=== PATIENT | male | born 1955 | race Caucasian/White ===

== ENCOUNTER 2018-06-11 06:37 | Observation (INO) ==
[2018-06-11] MEDS ORDERED: Aspirin 81 MG TAB.CHEW PO ONE (06:47)
[2018-06-11 07:10] LABS: Basophils # 0.1 K/mcL (0.0-0.2); Basophils % 0.7 %; Eosinophils # 0.2 K/mcL (0.0-0.6); Eosinophils % 2.8 %; Hematocrit 42.6 % (37.5-50.1); Hemoglobin 14.3 g/dL (12.9-16.9); Immature Granulocytes % 0.3 % (0-4); Lymphocytes # 2.1 K/mcL (0.6-4.6); Lymphocytes % 31.1 %; Mean Corpuscular HGB Conc 33.6 g/dL (31.6-35.5); Mean Corpuscular Hemoglobin 30.8 pg (28.0-33.3); Mean Corpuscular Volume 91.8 fL (83.0-100.0); Mean Platelet Volume 9.7 fL (9.4-12.4); Monocytes # 0.7 K/mcL (0.0-1.3); Monocytes % 10.6 %; Neutrophils # 3.6 K/mcL (1.6-8.9); Platelet Count 223 K/mcL (140-400); Red Blood Count 4.64 M/mcL (4.19-5.50); Red Cell Distribution Width 12.8 % (11.5-14.5); Segmented Neutrophils % 54.5 %
--- NOTE | 2018-06-11 07:14 | Emergency Department Note ---
Disposition Clinical Impression: Chest pain Qualifiers: Chest pain type: unspecified Qualified Code(s): R07.9 - Chest pain, unspecified Pancreatitis Qualifiers: Chronicity: acute Pancreatitis type: unspecified pancreatitis type Acute pancreatitis complication: unspecified Qualified Code(s): K85.90 - Acute pancreatitis without necrosis or infection, unspecified Disposition: Admitted As Inpatient Referrals: Cindy Beach RANGE MANAGEMENT SPECIALIST [Primary Care Provider] - Forms: ED Satisfaction Letter General Adult HPI - General Chief complaint: ED Chest Pain Stated complaint: CP/Nausea Time Seen by Provider: 06/11/18 06:47 Source: patient Limitations: no limitations Nursing Notes Reviewed: Yes Vital Signs Reviewed: Yes - History of Present Illness HPI Narrative: 63-year-old male past medical history of hypertension, hyperlipidemia, diabetes type 2 wheezes emergency department with concern for having symptoms of what he refers to as indigestion and nausea starting last night. Stated they woke up this morning, was at work, when he started experiencing chest pressure that was starting in the epigastrium radiated upward. Patient denies having any abdominal pain at this time. Pain Scale: 5 - Related Data Home Medications Medication Instructions Recorded Confirmed Celecoxib [Celebrex] 200 mg PO DAILY 06/11/18 06/11/18 Insulin DETEMIR [Levemir Flextouch] 50 unit SQ QPM 06/11/18 06/11/18 Latanoprost [Xalatan] 1 drop BOTH EYES HS 06/11/18 06/11/18 Liraglutide [Victoza 2-Frank] 1.8 mg SQ DAILY 06/11/18 06/11/18 Lisinopril [Zestril] 10 mg PO DAILY 06/11/18 06/11/18 Lovastatin [Mevacor] 20 mg PO HS 06/11/18 06/11/18 Magnesium Oxide [Magnesium] 400 mg PO DAILY 06/11/18 06/11/18 Metformin HCl 1,000 mg PO BID 06/11/18 06/11/18 Turmeric Root Extract [Turmeric 500 mg PO DAILY 06/11/18 06/11/18 Curcumin] Allergies Allergy/AdvReac Type Severity Reaction Status Date / Time No Known Allergies Allergy Verified 02/14/16 16:49 All systems ED: reviewed and negative except as stated. Review of Systems: As Per HPI Constitutional: Denies: fever Cardiovascular: Reports: chest pain Respiratory: Reports: dyspnea Gastrointestinal: Reports: abdominal pain, nausea. Denies: vomiting, diarrhea, constipation Genitourinary: Denies: urgency, dysuria, frequency Musculoskeletal: Denies: back pain, neck pain Neurological: Denies: weakness, numbness, paresthesias Past Medical History - Past Medical History Medical history: Reports: diabetes, hyperlipidemia, hypertension Psychiatric history: Reports: no psych history - Social History Smoking Status: Never smoker Smokeless Tobacco Status: No Alcohol use: Reports: none Drug use: Reports: none Physical Exam - General Limitations: no limitations General appearance: alert, in no apparent distress - Head Head exam: normocephalic - Eye Eye exam: Present: EOMI. Absent: scleral icterus - ENT ENT exam: mucous membranes moist - Neck Neck exam: Present: trachea midline - Chest Chest inspection: Present: symmetric chest wall rise - Respiratory Respiratory exam: Present: normal lung sounds bilaterally. Absent: respiratory distress, accessory muscle use - Cardiovascular Cardiovascular exam: Present: regular rate, normal rhythm, normal heart sounds - Abdominal Exam Abdominal exam: Present: tenderness (Diffuse), distention (Mild), guarding. Absent: rebound - Extremities Exam Extremities exam: Present: normal capillary refill - Back Exam Back exam: Present: full ROM - Neurological Exam Neurological exam: Present: alert, oriented X3, CN II-XII intact - Psychiatric Psychiatric exam: Present: normal affect, normal mood - Skin Skin exam: Present: warm, dry, intact, normal color. Absent: rash Course Vital Signs Temperature 97.5 F L 06/11/18 06:42 Pulse Rate 81 06/11/18 06:42 Respiratory Rate 18 06/11/18 06:42 Blood Pressure 134/108 06/11/18 06:42 O2 Sat by Pulse Oximetry 99 06/11/18 06:42 Temperature 97.5 F L 06/11/18 06:42 Pulse Rate 55 06/11/18 09:53 Respiratory Rate 14 06/11/18 09:53 Blood Pressure 119/74 06/11/18 09:53 O2 Sat by Pulse Oximetry 99 06/11/18 09:53 Oxygen Delivery Oxygen Delivery Room Air Medical Decision Making - MDM Narrative Medical decision making narrative: 63-year-old male presents emergency department with concern for chest pressure and epigastric abdominal pain with mild distention. Patient hemodynamically stable and not in any acute distress. EKG did not reveal any ischemic ST changes. Troponin is negative. Patient was given sublingual nitroglycerin brought his pain to a 2 out of 10. We were giving fluids as well as pressure was soft, but at time of initiating a nitro drip, he was chest pain-free. Patient had mildly elevated lipase at 113. We did obtain a CT scan of abdomen and pelvis which did not reveal any acute intra-abdominal abnormality. We did obtain a gallbladder ultrasound as well and this revealed mild gallbladder sludg e without evidence of cholelithiasis or cholecystitis per radiology. Chest and shoulder did not reveal any acute cardiopulmonary disease per radiology as well. Patient was offered admission due to concern for possible early pancreatitis as well as chest pain observation as he does have significant risk factors for coronary artery disease with his age, history of type 2 diabetes mellitus, hypertension, hyperlipidemia. He accepted it. Patient was chest pain-free at that time. Chest X-Ray 06/11/18 06:47 IMPRESSION: No acute cardiopulmonary process. The lungs are clear. D/ / Carlos Elliott MD / Carlos Elliott MD Interpreting Provider: Carlos Elliott MD Abdomen/Pelvis CT 06/11/18 07:15 IMPRESSION: Colonic diverticulosis is identified, without acute diverticulitis. The appendix appears normal. No right-sided renal calculi, ureteral calculi, hydronephrosis or evidence of recently passed stone. Hepatic steatosis. No acute inflammatory process is identified within the abdomen or pelvis. No bowel obstruction or ileus. Minimal subcutaneous soft tissue stranding may be related to mild subcutaneous edema in the anterior abdominal wall above the umbilicus. No discrete fluid collection. D/ / Carlos Elliott MD / Carlos Elliott MD Interpreting Provider: Carlos Elliott MD Gallbladder Ultrasound 06/11/18 07:50 IMPRESSION: 1. Mild gallbladder sludge without evidence of cholelithiasis or cholecystitis. 2. Diffuse hepatic steatosis. 3. Nonvisualization of the pancreas secondary to obscuration by overlying bowel gas. 4. Unremarkable sonographic appearance of the common bile duct and right kidney. D/ / 06/11/2018 09:37:54 Abran Juan MD / shyanne Interpreting Provider: Abran Juan MD Vital Signs Temperature 97.5 F L 06/11/18 06:42 Pulse Rate 81 06/11/18 06:42 Respiratory Rate 18 06/11/18 06:42 Blood Pressure 134/108 06/11/18 06:42 O2 Sat by Pulse Oximetry 99 06/11/18 06:42 Temperature 97.5 F L 06/11/18 06:42 Pulse Rate 55 06/11/18 09:53 Respiratory Rate 14 06/11/18 09:53 Blood Pressure 119/74 06/11/18 09:53 O2 Sat by Pulse Oximetry 99 06/11/18 09:53 Oxygen Delivery Oxygen Delivery Room Air - Lab Data Result diagrams: 06/11/18 06:51 06/11/18 06:51 Lab Results 06/11/18 06/11/18 06/11/18 Range/Units 06:51 06:51 06:51 WBC 6.7 (4.3-11.1) K/mcL RBC 4.64 (4.19-5.50) M/mcL Hgb 14.3 (12.9-16.9) g/dL Hct 42.6 (37.5-50.1) % MCV 91.8 (83.0-100.0) fL MCH 30.8 (28.0-33.3) pg MCHC 33.6 (31.6-35.5) g/dL RDW 12.8 (11.5-14.5) % Plt Count 223 (140-400) K/mcL MPV 9.7 (9.4-12.4) fL Immature Gran % 0.3 (0-4) % Seg Neutrophils % 54.5 % Lymphocytes % 31.1 % Monocytes % 10.6 % Eosinophils % 2.8 % Basophils % 0.7 % Neutrophils # 3.6 (1.6-8.9) K/mcL Lymphocytes # 2.1 (0.6-4.6) K/mcL Monocytes # 0.7 (0.0-1.3) K/mcL Eosinophils # 0.2 (0.0-0.6) K/mcL Basophils # 0.1 (0.0-0.2) K/mcL PT (9.4-12.1) Seconds INR APTT (26.0-36.0) Seconds Sodium 134 L (136-145) mEq/L Potassium 4.3 (3.5-5.1) mEq/L Chloride 103 (98-107) mEq/L Carbon Dioxide 23 (23-29) mEq/L BUN 16 (8-23) mg/dL Creatinine 1.10 (0.70-1.30) mg/dL Est GFR ( Amer) > 60 (> 60) Est GFR (Non-Af Amer) > 60 (> 60) BUN/Creatinine Ratio 15 (6-26) Glucose 214 H (70-105) mg/dL Calculated Osmolality 286 (280-300) Calcium 9.3 (8.6-10.3) mg/dL Total Bilirubin (0.3-1.0) mg/dL Direct Bilirubin (0.0-0.2) mg/dL Indirect Bilirubin (0.0-1.2) mg/dL AST (13-39) Units/L ALT (7-52) Units/L Alkaline Phosphatase (34-104) Units/L Troponin I < 0.03 (< 0.04) ng/mL B-Natriuretic Peptide 21 (Less than 100) pg/mL Serum Total Protein (6.4-8.9) g/dL Albumin (3.5-5.7) g/dL Globulin (2.4-3.5) g/dL Albumin/Globulin Ratio (1.1-2.2) Lipase (11-82) Units/L 06/11/18 06/11/18 Range/Units 07:20 07:20 WBC (4.3-11.1) K/mcL RBC (4.19-5.50) M/mcL Hgb (12.9-16.9) g/dL Hct (37.5-50.1) % MCV (83.0-100.0) fL MCH (28.0-33.3) pg MCHC (31.6-35.5) g/dL RDW (11.5-14.5) % Plt Count (140-400) K/mcL MPV (9.4-12.4) fL Immature Gran % (0-4) % Seg Neutrophils % % Lymphocytes % % Monocytes % % Eosinophils % % Basophils % % Neutrophils # (1.6-8.9) K/mcL Lymphocytes # (0.6-4.6) K/mcL Monocytes # (0.0-1.3) K/mcL Eosinophils # (0.0-0.6) K/mcL Basophils # (0.0-0.2) K/mcL PT 12.4 H (9.4-12.1) Seconds INR 1.1 APTT 30.2 (26.0-36.0) Seconds Sodium (136-145) mEq/L Potassium (3.5-5.1) mEq/L Chloride (98-107) mEq/L Carbon Dioxide (23-29) mEq/L BUN (8-23) mg/dL Creatinine (0.70-1.30) mg/dL Est GFR ( Amer) (> 60) Est GFR (Non-Af Amer) (> 60) BUN/Creatinine Ratio (6-26) Glucose (70-105) mg/dL Calculated Osmolality (280-300) Calcium (8.6-10.3) mg/dL Total Bilirubin 0.6 (0.3-1.0) mg/dL Direct Bilirubin 0.1 (0.0-0.2) mg/dL Indirect Bilirubin 0.5 (0.0-1.2) mg/dL AST 18 (13-39) Units/L ALT 16 (7-52) Units/L Alkaline Phosphatase 38 (34-104) Units/L Troponin I (< 0.04) ng/mL B-Natriuretic Peptide (Less than 100) pg/mL Serum Total Protein 6.6 (6.4-8.9) g/dL Albumin 4.0 (3.5-5.7) g/dL Globulin 2.6 (2.4-3.5) g/dL Albumin/Globulin Ratio 1.5 (1.1-2.2) Lipase 113 H (11-82) Units/L - EKG Data EKG #1 EKG attestation: Yes I reviewed and interpreted this EKG. EKG results narrative: EKG #1 Heart rate 72 bpm, [place] interval 166 ms, QRS anabaptist 118 ms, QT 384 ms, left asked deviation. Normal sinus rhythm with no ischemic ST changes. There is a left anterior fascicular block that is seen on previous EKG. EKG #2 8:51 No changes on this EKG compared to previous. Attestation Statement - Attestation Attestation: I, George Wilcox DO, examined this patient [id number] and my medical decision-making was reviewed with Dr. Maximo Franco, Resident Physician. I agree with the documented findings, disposition and treatment plan as described except to the extent set forth below. Please see my progress notes for details.
[2018-06-11] MEDS ORDERED: Isovue-370 500 ML INFUS..BTL IV ONE (07:15)
[2018-06-11] MEDS ORDERED: Nitroglycerin 0.4 MG TAB.SUBL SL PRN (07:16)
[2018-06-11] MEDS ORDERED: 0.9 % Sodium Chloride 1,000 ML IVC ONE (07:16)
[2018-06-11 07:29] LABS: BUN/Creatinine Ratio 15 (6-26); Blood Urea Nitrogen 16 mg/dL (8-23); Calcium 9.3 mg/dL (8.6-10.3); Carbon Dioxide 23 mEq/L (23-29); Chloride 103 mEq/L (98-107); Glucose 214 mg/dL (70-105); Osmolality,Calculated 286 (280-300); Potassium 4.3 mEq/L (3.5-5.1); Sodium 134 mEq/L (136-145); Troponin I < 0.03 ng/mL (< 0.04); eGFR For Non-African Americans > 60 (> 60)
[2018-06-11 07:43] LABS: INR 1.1; Prothrombin Time 12.4 Seconds (9.4-12.1)
[2018-06-11 07:46] LABS: Activated Partial Thrombo Time 30.2 Seconds (26.0-36.0); Albumin/Globulin Ratio 1.5 (1.1-2.2); Bilirubin,Direct 0.1 mg/dL (0.0-0.2); Bilirubin,Indirect 0.5 mg/dL (0.0-1.2); Bilirubin,Total 0.6 mg/dL (0.3-1.0); Globulin 2.6 g/dL (2.4-3.5); Total Protein 6.6 g/dL (6.4-8.9)
--- NOTE | 2018-06-11 07:58 | Emergency Department Note ---
Disposition Clinical Impression: Chest pain, Elevated lipase, Epigastric pain Disposition: Admitted As Inpatient Condition: Fair Referrals: Cindy Beach, MARBLE MACHINE OPERATOR [Primary Care Provider] - Forms: ED Satisfaction Letter Time of Disposition: 10:02 General Adult HPI - General Chief complaint: ED Chest Pain Stated complaint: CP/Nausea Time Seen by Provider: 06/11/18 06:47 Source: patient Limitations: no limitations - History of Present Illness Pain Scale: 5 - Related Data Home Medications Medication Instructions Recorded Confirmed Celecoxib [Celebrex] 200 mg PO DAILY 06/11/18 06/11/18 Insulin DETEMIR [Levemir Flextouch] 50 unit SQ QPM 06/11/18 06/11/18 Latanoprost [Xalatan] 1 drop BOTH EYES HS 06/11/18 06/11/18 Liraglutide [Victoza 2-Frank] 1.8 mg SQ DAILY 06/11/18 06/11/18 Lisinopril [Zestril] 10 mg PO DAILY 06/11/18 06/11/18 Lovastatin [Mevacor] 20 mg PO HS 06/11/18 06/11/18 Magnesium Oxide [Magnesium] 400 mg PO DAILY 06/11/18 06/11/18 Metformin HCl 1,000 mg PO BID 06/11/18 06/11/18 Turmeric Root Extract [Turmeric 500 mg PO DAILY 06/11/18 06/11/18 Curcumin] Allergies Allergy/AdvReac Type Severity Reaction Status Date / Time No Known Allergies Allergy Verified 02/14/16 16:49 Past Medical History - Past Medical History Medical history: Reports: diabetes, hyperlipidemia, hypertension Psychiatric history: Reports: no psych history - Social History Smoking Status: Never smoker Smokeless Tobacco Status: No Alcohol use: Reports: none Drug use: Reports: none Physical Exam - General Limitations: no limitations General appearance: alert, in no apparent distress Course Vital Signs Temperature 97.5 F L 06/11/18 06:42 Pulse Rate 81 06/11/18 06:42 Respiratory Rate 18 06/11/18 06:42 Blood Pressure 134/108 06/11/18 06:42 O2 Sat by Pulse Oximetry 99 06/11/18 06:42 Temperature 97.5 F L 06/11/18 06:42 Pulse Rate 55 06/11/18 09:53 Respiratory Rate 14 11/28/18 09:53 Blood Pressure 119/74 06/11/18 09:53 O2 Sat by Pulse Oximetry 99 06/11/18 09:53 Oxygen Delivery Oxygen Delivery Room Air Medical Decision Making - Lab Data Result diagrams: 06/11/18 06:51 06/11/18 06:51 Lab Results 06/11/18 06/11/18 06/11/18 Range/Units 06:51 06:51 06:51 WBC 6.7 (4.3-11.1) K/mcL RBC 4.64 (4.19-5.50) M/mcL Hgb 14.3 (12.9-16.9) g/dL Hct 42.6 (37.5-50.1) % MCV 91.8 (83.0-100.0) fL MCH 30.8 (28.0-33.3) pg MCHC 33.6 (31.6-35.5) g/dL RDW 12.8 (11.5-14.5) % Plt Count 223 (140-400) K/mcL MPV 9.7 (9.4-12.4) fL Immature Gran % 0.3 (0-4) % Seg Neutrophils % 54.5 % Lymphocytes % 31.1 % Monocytes % 10.6 % Eosinophils % 2.8 % Basophils % 0.7 % Neutrophils # 3.6 (1.6-8.9) K/mcL Lymphocytes # 2.1 (0.6-4.6) K/mcL Monocytes # 0.7 (0.0-1.3) K/mcL Eosinophils # 0.2 (0.0-0.6) K/mcL Basophils # 0.1 (0.0-0.2) K/mcL PT (9.4-12.1) Seconds INR APTT (26.0-36.0) Seconds Sodium 134 L (136-145) mEq/L Potassium 4.3 (3.5-5.1) mEq/L Chloride 103 (98-107) mEq/L Carbon Dioxide 23 (23-29) mEq/L BUN 16 (8-23) mg/dL Creatinine 1.10 (0.70-1.30) mg/dL Est GFR ( Amer) > 60 (> 60) Est GFR (Non-Af Amer) > 60 (> 60) BUN/Creatinine Ratio 15 (6-26) Glucose 214 H (70-105) mg/dL Calculated Osmolality 286 (280-300) Calcium 9.3 (8.6-10.3) mg/dL Total Bilirubin (0.3-1.0) mg/dL Direct Bilirubin (0.0-0.2) mg/dL Indirect Bilirubin (0.0-1.2) mg/dL AST (13-39) Units/L ALT (7-52) Units/L Alkaline Phosphatase (34-104) Units/L Troponin I < 0.03 (< 0.04) ng/mL B-Natriuretic Peptide 21 (Less than 100) pg/mL Serum Total Protein (6.4-8.9) g/dL Albumin (3.5-5.7) g/dL Globulin (2.4-3.5) g/dL Albumin/Globulin Ratio (1.1-2.2) Lipase (11-82) Units/L 06/11/18 06/11/18 Range/Units 07:20 07:20 WBC (4.3-11.1) K/mcL RBC (4.19-5.50) M/mcL Hgb (12.9-16.9) g/dL Hct (37.5-50.1) % MCV (83.0-100.0) fL MCH (28.0-33.3) pg MCHC (31.6-35.5) g/dL RDW (11.5-14.5) % Plt Count (140-400) K/mcL MPV (9.4-12.4) fL Immature Gran % (0-4) % Seg Neutrophils % % Lymphocytes % % Monocytes % % Eosinophils % % Basophils % % Neutrophils # (1.6-8.9) K/mcL Lymphocytes # (0.6-4.6) K/mcL Monocytes # (0.0-1.3) K/mcL Eosinophils # (0.0-0.6) K/mcL Basophils # (0.0-0.2) K/mcL PT 12.4 H (9.4-12.1) Seconds INR 1.1 APTT 30.2 (26.0-36.0) Seconds Sodium (136-145) mEq/L Potassium (3.5-5.1) mEq/L Chloride (98-107) mEq/L Carbon Dioxide (23-29) mEq/L BUN (8-23) mg/dL Creatinine (0.70-1.30) mg/dL Est GFR ( Amer) (> 60) Est GFR (Non-Af Amer) (> 60) BUN/Creatinine Ratio (6-26) Glucose (70-105) mg/dL Calculated Osmolality (280-300) Calcium (8.6-10.3) mg/dL Total Bilirubin 0.6 (0.3-1.0) mg/dL Direct Bilirubin 0.1 (0.0-0.2) mg/dL Indirect Bilirubin 0.5 (0.0-1.2) mg/dL AST 18 (13-39) Units/L ALT 16 (7-52) Units/L Alkaline Phosphatase 38 (34-104) Units/L Troponin I (< 0.04) ng/mL B-Natriuretic Peptide (Less than 100) pg/mL Serum Total Protein 6.6 (6.4-8.9) g/dL Albumin 4.0 (3.5-5.7) g/dL Globulin 2.6 (2.4-3.5) g/dL Albumin/Globulin Ratio 1.5 (1.1-2.2) Lipase 113 H (11-82) Units/L Attestation Statement - Attestation Attestation: I, George Wilcox DO, examined this patient [id number] and my medical decision-making was reviewed with Dr. Maximo Franco, Resident Physician. I agree with the documented findings, disposition and treatment plan as described except to the extent set forth below. Please see my progress notes for details. 62-year-old male presents to the emergency room with worsening chest pressure and epigastric pain. Patient has no specific cardiac history at this time. Currently denying shortness of breath, nausea, vomiting, diarrhea. Denies any headache or vision change. Denies any fevers or chills. He has not been re cently ill. Denies any sick contacts. He has not traveled outside the country and has not eaten any abnormal places. Patient said the symptoms started yesterday prior to going to bed. He woke up acutely this morning with pressure and tightness in his epigastrium. He did go to work and did not have any relief of the symptoms subside to come into the emergency room for evaluation. Aspirin was taken this morning and the completion of the full dose aspirin was given here. Initial EKG does not show any diagnostic criteria for acute myocardial infarction. Symptomatically controlled will be completed with fluids nausea medication and nitroglycerin. Vital signs are reviewed and are stable at this point. Screening evaluation with CBC chemistry troponin and BNP along with chest x-ray will be established here in the emergency room. Patient does have risk factors including hypertension, hyperlipidemia, elevated cholesterol. Patient's primary care providers Cindy Beach. Concern is noted for acute coronary syndrome at this time. Versus abdominal etiology. Detailed workup to be completed. Fluids pain medication nausea medication will be ordered. Disposition to be determined. See detailed documentation of the physical exam, medical intervention, medical decision-making and disposition in the resident physician's note. No critical care applied to the patient's treatment course at this time. 0800 Troponin is negative. Patient does have a slightly elevated lipase. He does no t have any specific history of alcohol abuse her pancreatitis. CT imaging of the abdomen as well as a right upper quadrant ultrasound will be utilized at this point to address any other potential obstructive pathology versus inflammatory changes in the abdominal area. Symptomatic control has been completed with nitroglycerin. Symptoms did almost completely resolved with one single dose his blood pressure did drop. Fluids were given and then repeat evaluation to be completed. Patient will require admission once workup has been completed 0915 Patient's repeat EKG is essentially normal. No changes. Pain is completely gone with the nitroglycerin drip. Patient will be provided with any other symptomatic control as needed during the emergency department evaluation. The CT imaging of the abdomen is unremarkable for acute signs of pancreatitis inflammation or other intra-abdominal etiology. Ultrasound shows biliary sludge but otherwise no acute signs of cholecystitis. Patient will be admitted with main concern being potential early pancreatitis versus ACS evaluation. Hospitalist will be paged [phone] Dr. Lee reviewed the case via phone. No other recommendations or concerns at this point. Patient is chest pain-free. He will be admitted for symptomatic control continuation of management. We will monitor here in the emergency room until admission processes established
[2018-06-11] MEDS: Nitroglycerin 25 MG/250 ML INFUS..BTL IVC SCH (10:17)
--- NOTE | 2018-06-11 10:18 | Internal Med History&Physical ---
Date of Encounter: 06/11/18 Time of Encounter: 10:14 Internal Medicine - H&P: HPI Chief complaint: chest pain and nausea Admitted From: Emergency Dept Plans for Post Hospital Care: Home History of present illness: Mr. Anne is a 63 year old male Patient with history of hypertension, high cholesterol, diabetes, obesity, family history of CAD father had history of CABG. Patient presented to the emergency room with chest pain started this morning mid sternal no radiation has some nausea but no vomiting also has some epigastric pain and came into the emergency room the chest pain has subsided but not resolved EKG is unremarkable further evaluation CT of the abdomen and pelvis is unremarkable US of r Gallbladder Shows Some Gallbladder Sludge Troponin so Far Is Negative Lipase Is 113 Upper Limit of Normal Is 82 Patient Denies Any Alcohol Problem Patient Admitted for Chest Pain Rule Out Protocol Will Try to Get Him in for Nuclear Stress Test if Possible this morning and Also 2-D Echo. Past Med Surg Social Fam HX - Past Medical History Medical history: diabetes, hyperlipidemia, hypertension Psychiatric history: no psych history - Past Surgical History Additional surgical history: back - Social History Smoking Status: Never smoker Smokeless Tobacco Status: No Alcohol use: none Drug use: none Internal Medicine - H&P: Meds Celecoxib [Celebrex] 200 mg PO DAILY 06/11/18 [History] Insulin DETEMIR [Levemir Flextouch] 50 unit SQ QPM 06/11/18 [History] Latanoprost [Xalatan] 1 drop BOTH EYES HS 06/11/18 [History] Liraglutide [Victoza 2-Frank] 1.8 mg SQ DAILY 06/11/18 [History] Lisinopril [Zestril] 10 mg PO DAILY 06/11/18 [History] Lovastatin [Mevacor] 20 mg PO HS 06/11/18 [History] Magnesium Oxide [Magnesium] 400 mg PO DAILY 06/11/18 [History] Metformin HCl 1,000 mg PO BID 06/11/18 [History] Turmeric Root Extract [Turmeric Curcumin] 500 mg PO DAILY 06/11/18 [History] Allergy/AdvReac Type Severity Reaction Status Date / Time No Known Allergies Allergy Verified 02/14/16 16:49 All Systems PM: A 10-system review of systems was performed and is negative for pertinent findings except as documented above in the HPI. - Constitutional Vitals: Temp Pulse Resp BP Pulse Ox 97.5 F L 55 14 119/74 99 06/11/18 06:42 06/11/18 09:53 06/11/18 09:53 06/11/18 09:53 06/11/18 09:53 Exam: done - Head Head exam: Present: atraumatic, normocephalic - Eye Eye exam: Present: PERRL, conjuntiva pink, sclera anicteric Pupils: Present: PERRL - Neck Neck exam general surgery: Present: supple, trachea midline. Absent: lym phadenopathy - Respiratory Respiratory exam: Present: CTAB. Absent: accessory muscle use, rales, rhonchi, wheezes - Cardiovascular Cardiovascular exam: Present: RRR, +S1, +S2. Absent: diastolic murmur, gallop, rubs, systolic murmur - GI/Abdominal GI/Abdominal exam: Present: normal bowel sounds, soft, no peritoneal signs. Absent: distended, tenderness - Extremities Exam Extremities exam: Present: warm, radial pulses palpable and symmetrical. Absent: calf tenderness, cyanotic, pedal edema - Neurological Exam Neurological exam: Present: CN II-XII intact, oriented X3, no focal deficits. Absent: pronater drift, facial droop, speech deficit - Skin Skin exam: Present: dry, intact Internal Med - H&P Results - Labs CBC & Chem 7: 06/11/18 06:51 06/11/18 06:51 Labs: Short CBC 06/11/18 Range/Units 06:51 WBC 6.7 (4.3-11.1) K/mcL Hgb 14.3 (12.9-16.9) g/dL Hct 42.6 (37.5-50.1) % Plt Count 223 (140-400) K/mcL Neutrophils # 3.6 (1.6-8.9) K/mcL BMP 06/11/18 06:51 Sodium 134 L Potassium 4.3 Chloride 103 Carbon Dioxide 23 BUN 16 Creatinine 1.10 Glucose 214 H Calcium 9.3 Cardiac Enzymes 06/11/18 Range/Units 06:51 Troponin I < 0.03 (< 0.04) ng/mL Liver Function 06/11/18 Range/Units 07:20 Total Bilirubin 0.6 (0.3-1.0) mg/dL Direct Bilirubin 0.1 (0.0-0.2) mg/dL AST 18 (13-39) Units/L ALT 16 (7-52) Units/L Alkaline Phosphatase 38 (34-104) Units/L Albumin 4.0 (3.5-5.7) g/dL - Impressions ITS Impressions Chest X-Ray 06/11/18 06:47 IMPRESSION: No acute cardiopulmonary process. The lungs are clear. D/ / Carlos Elliott MD / Carlos Elliott MD Interpreting Provider: Carlos Elliott MD Abdomen/Pelvis CT 06/11/18 07:15 IMPRESSION: Colonic diverticulosis is identified, without acute diverticulitis. The appendix appears normal. No right-sided renal calculi, ureteral calculi, hydronephrosis or evidence of recently passed stone. Hepatic steatosis. No acute inflammatory process is identified within the abdomen or pelvis. No bowel obstruction or ileus. Minimal subcutaneous soft tissue stranding may be related to mild subcutaneous edema in the anterior abdominal wall above the umbilicus. No discrete fluid collection. D/ / Carlos Elliott MD / Carlos Elliott MD Interpreting Provider: Carlos Elliott MD Gallbladder Ultrasound 06/11/18 07:50 IMPRESSION: 1. Mild gallbladder sludge without evidence of cholelithiasis or cholecystitis. 2. Diffuse hepatic steatosis. 3. Nonvisualization of the pancreas secondary to obscuration by overlying bowel gas. 4. Unremarkable sonographic appearance of the common bile duct and right kidney. D/ / 06/11/2018 09:37:54 Abran Juan MD / [facility] Interpreting Provider: Abran Juan MD - Assessment and plan (1) HTN (hypertension) Current Visit: Yes Status: Chronic Assessment and plan: Chronic and well controlled Qualifiers: Hypertension type: essential hypertension Qualified Code(s): I10 - Essential (primary) hypertension (2) Diabetes 1.5, managed as type 2 Current Visit: Yes Status: Chronic Assessment and plan: Chronic with resume home medication and place on sliding scale (3) Obesity Current Visit: Yes Status: Chronic Assessment and plan: Chronic due to excess caloric intake Qualifiers: Obesity type: due to excess calories Obesity classification: unspecified obesity classification Serious obesity comorbidity presence: unspecified whether serious comorbidity present Qualified Code(s): E66.09 - Other obesity due to excess calories (4) Hyperlipidemia Current Visit: Yes Status: Chronic Assessment and plan: Will check lipid profile Qualifiers: Hyperlipidemia type: pure hypercholesterolemia Qualified Code(s): E78.00 - Pure hypercholesterolemia, unspecified; E78.0 - Pure hypercholesterolemia (5) Chest pain Current Visit: Yes Status: Acute Assessment and plan: Chest pain the patient with multiple cardiac risk factors hypertension diabetes high cholesterol and obesity and family history of CAD need further cardiac evaluation was scheduled for stress test and that 2-D echo Qualifiers: Chest pain type: unspecified Qualified Code(s): R07.9 - Chest pain, unspecified (6) Epigastric pain Current Visit: Yes Status: Acute Assessment and plan: Likely secondary to mild pancreatitis gallbladder ultrasound shows some sludge but no acute cholecystitis liver function is normal CT of the abdomen is unremarkable (7) Pancreatitis Current Visit: Yes Status: Acute Qualifiers: Chronicity: acute Pancreatitis type: unspecified pancreatitis type Acute pancreatitis complication: unspecified Qualified Code(s): K85.90 - Acute pancreatitis without necrosis or infection, unspecified - Time Spent With Patient Total time spent is greater than 50% in coordination of care (as documented) at patient's floor/unit and/or counseling patient:
[2018-06-11] MEDS ORDERED: Acetaminophen 325 MG TABLET PO PRN (10:22)
[2018-06-11] MEDS ORDERED: Naloxone 0.4 MG/ML INJ IVP PRN (10:22)
[2018-06-11] MEDS ORDERED: traMADol 50 MG TABLET PO PRN (10:22)
[2018-06-11] MEDS ORDERED: *HR* Dextrose 50 % in Water (Syg) 50 ML SYRINGE IVP PRN (10:33)
[2018-06-11] MEDS ORDERED: D5% in Water 1,000 ML IVC PRN (10:33)
[2018-06-11] MEDS ORDERED: Dextrose Gel 15 GM/37.5 ML TUBE PO PRN ×2 (10:33)
[2018-06-11] MEDS: Insulin LISPRO 300 UNITS/3 ML VIAL SQ SCH ×2 (12:00→17:51)
[2018-06-11 12:13] LABS: Alanine Aminotransferase 16 Units/L (7-52); Albumin 3.9 g/dL (3.5-5.7); Albumin/Globulin Ratio 1.6 (1.1-2.2); Alkaline Phosphatase 38 Units/L (34-104); Aspartate Amino Transferase 17 Units/L (13-39); BUN/Creatinine Ratio 15 (6-26); Bilirubin,Total 0.6 mg/dL (0.3-1.0); Blood Urea Nitrogen 14 mg/dL (8-23); Calcium 8.5 mg/dL (8.6-10.3); Carbon Dioxide 24 mEq/L (23-29); Chloride 107 mEq/L (98-107); Chol/HDL Ratio 3.5 (0-4.9); Cholesterol 110 mg/dL (< 200); Globulin 2.4 g/dL (2.4-3.5); Glucose 133 mg/dL (70-105); HDL Cholesterol 31 mg/dL (40-59); LDL Cholesterol,Calculated 56 mg/dL (0-99); Osmolality,Calculated 290 (280-300); Potassium 4.4 mEq/L (3.5-5.1); Sodium 139 mEq/L (136-145); Total Protein 6.3 g/dL (6.4-8.9); Triglycerides 117 mg/dL (< 150); eGFR For Non-African Americans > 60 (> 60)
[2018-06-11] MEDS: 0.9 % Sodium Chloride 1,000 ML IVC SCH (17:43)
[2018-06-11] MEDS ORDERED: Insulin DETEMIR 100 UNIT/ML X5UNITS SQ SCH (21:00)
[2018-06-11] MEDS ORDERED: Latanoprost 2.5 ML BOTTLE BOTH EYES SCH (21:00)
[2018-06-12 05:38] LABS: Basophils # 0.1 K/mcL (0.0-0.2); Basophils % 0.7 %; Eosinophils # 0.2 K/mcL (0.0-0.6); Eosinophils % 3.2 %; Hematocrit 39.5 % (37.5-50.1); Immature Granulocytes % 0.1 % (0-4); Lymphocytes # 2.4 K/mcL (0.6-4.6); Lymphocytes % 31.9 %; Mean Corpuscular HGB Conc 32.9 g/dL (31.6-35.5); Mean Corpuscular Hemoglobin 30.8 pg (28.0-33.3); Mean Corpuscular Volume 93.6 fL (83.0-100.0); Mean Platelet Volume 9.7 fL (9.4-12.4); Monocytes # 0.7 K/mcL (0.0-1.3); Monocytes % 9.7 %; Neutrophils # 4.1 K/mcL (1.6-8.9); Platelet Count 187 K/mcL (140-400); Red Blood Count 4.22 M/mcL (4.19-5.50); Red Cell Distribution Width 12.7 % (11.5-14.5); Segmented Neutrophils % 54.4 %
[2018-06-12] MEDS ORDERED: Regadenoson 0.4 MG/5 ML SYRINGE IVP ONE (05:47)
[2018-06-12] MEDS: 0.9 % Sodium Chloride 1,000 ML IVC SCH (06:07)
--- NOTE | 2018-06-12 07:27 | Electrocardiograph Report ---
[place] [facility] Test Date: 2018-06-11 Pat Name: Gray Anne Department: EXAM21 Room: 3B53 Gender: M Bin Packer: : 1955 Requested By: Pritesh Fisher Order Number: [id number] Reading MD: Freddy Jean Measurements Intervals [place] Rate: 72 P: 71 OR: 166 QRS: -78 QRSD: 118 T: 39 QT: 384 QTc: 421 Interpretive Statements Sinus rhythm Left anterior fascicular block Electronically Signed On 06-12-2018 7:26:41 EST by Freddy Jean
--- NOTE | 2018-06-12 07:32 | Electrocardiograph Report ---
[place] [facility] Test Date: 2018-06-11 Pat Name: Gray Anne Department: EXAM21 Room: 3B53 Gender: M Merchandising Consultant: : 1955 Requested By: Maximo Franco Order Number: [id number] Reading MD: Freddy Jean Measurements Intervals [place] Rate: 60 P: 56 VA: 196 QRS: -74 QRSD: 118 T: 4 QT: 416 QTc: 416 Interpretive Statements Sinus rhythm Left anterior fascicular block Electronically Signed On 06-12-2018 7:30:21 EST by Freddy Jean
[2018-06-12] MEDS ORDERED: Liraglutide [Victoza 2-Pak] 1.8 MG SQ SCH (09:00)
[2018-06-12] MEDS ORDERED: Magnesium Oxide 400 MG TABLET PO SCH (09:00)
[2018-06-12] MEDS ORDERED: Celecoxib 200 MG CAPSULE PO SCH (09:00)
[2018-06-12] MEDS ORDERED: TURMERIC ROOT EXTRACT 500 MG PO SCH (09:00)
[2018-06-12] MEDS: Insulin LISPRO 300 UNITS/3 ML VIAL SQ SCH ×2 (09:04→12:22)
[2018-06-12] MEDS: Nitroglycerin 25 MG/250 ML INFUS..BTL IVC SCH (11:02)
[2018-06-12 11:49] VITALS: BP 122/74
--- NOTE | 2018-06-12 13:49 | Cardiology Consult Note ---
Addendum entered and electronically signed by Bismark Moraes MD 06/12/18 14:26: I examined this patient and my medical decision-making was reviewed with the Resident Physician. I agree with the documented findings, disposition and treatment plan as described except to the extent set forth below. A/P: Equivocal stress test with possible low risk abnormality DM Dyslipidemia Obesity A/R/B of LHC versus med tx discussed with him. Given low risk stress findings, patient decision is acceptable for trial of medical management for 2 weeks. FU visit in 2 weeks and start BB, if continued anginal symptoms can fu with [facility] with me. Thank you for the consult, Bismark Moraes MD [facility] Original Note: Date of Encounter: 06/12/18 Time of Encounter: 13:41 Assessment and Plan (1) Chest pain Current Visit: Yes Status: Acute atypical chest pain ECG sinus rhythm with rate [address] elevation or depression Troponin negative x3 Echocardiogram: LVEF 60%.Normal LV chamber size, wall thickness and function.Mild left ventricular diastolic dysfunction.Mild systolic anterior motion of the MV leaflets. No obstruction.Normal right ventricular structure and function.Unable to estimate RVSP due to lack of TR jet. No significant valvular dysfunction. Stress test shows tress test shows small sized, mild to moderate intensity partially fixed perfusion defect involving the apical inferior segment. plan: Patient not in ACS. Plan on patient following up with cardiology outpatien t in one week for consideration of outpatient [facility]. Patients LDL and total cholesterol is at goal. Continue home aspirin, statin, lisinopril. Start on low dose bblocker. Patient should also be discharged with nitroglycerin. Qualifiers: Chest pain type: unspecified Qualified Code(s): R07.9 - Chest pain, unspecified (2) Diabetes 1.5, managed as type 2 Current Visit: Yes Status: Chronic insulin dependent DM2 controlled (3) Obesity Current Visit: Yes Status: Chronic patient educated on benefits of weight reduction Qualifiers: Obesity type: due to excess calories Obesity classification: unspecified obesity classification Serious obesity comorbidity presence: unspecified whether serious comorbidity present Qualified Code(s): E66.09 - Other obesity due to excess calories (4) Hyperlipidemia Current Visit: Yes Status: Chronic continue home statin Qualifiers: Hyperlipidemia type: pure hypercholesterolemia Qualified Code(s): E78.00 - Pure hypercholesterolemia, unspecified; E78.0 - Pure hypercholesterolemia Discussion w patient/family: The assessment and plan as outlined above was discussed with the patient and/or family members who expressed understanding and agreement. All questions were answered. Thank you for involving us in the care of your patient. Please call with any questions. History of Present Illness Consult date: 06/12/18 Requesting physician: Brien Lee Consult reason: abnormal stress test Chief complaint: chest pain History of present illness: Mr. Anne is a 63 year old male hx of insulin dependent DM2, HTN, HLD presents with cc of chest pain. reports her and patient had arguement overnight and usually patient becomes very stressed after arguments. In the morning, patient was very nauseas and gagging. On the way to work patients nausea continued and he had sub-sternal chest pain without radiation. He denied exacerbating symptoms and relieving symptoms. 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 He was given 2 nitroglycerin SL which resolved the chest pain. Patient has echocardiogram and stress test in patient. Echo LVEF 60% with normal LV changer size and wall thickness and function, mild LV diastolic dysfunction, mild systolic anterior motion of the MV leaflets, normal right ventricular function. Stress test shows small sized, mild to moderate intensity partially fixed perfusion defect involving the apical inferior segment. Denies hx of alcohol or tobacco use. Reports family hx of CAD in both parents. Patient reports having LHC [address] [facility] after having a episode of passing out in the bathroom. His reports that he had "30 % blockage". Past Med Surg Social Fam HX - Past Medical History Medical history: diabetes, hyperlipidemia, hypertension Psychiatric history: no psych history - Past Surgical History Additional surgical history: back - Social History Smoking Status: Never smoker Smokeless Tobacco Status: No Alcohol use: none Drug use: none - Family History Father Age at : 72 Cause of : heart disease Hx Family Cardiac Disorders: Yes Medications and Allergies Celecoxib [Celebrex] 200 mg PO DAILY 06/11/18 [History] Insulin DETEMIR [Levemir Flextouch] 50 unit SQ QPM 06/11/18 [History] Latanoprost [Xalatan] 1 drop BOTH EYES HS 06/11/18 [History] Liraglutide [Victoza 2-Frank] 1.8 mg SQ DAILY 06/11/18 [History] Lisinopril [Zestril] 10 mg PO DAILY 06/11/18 [History] Lovastatin [Mevacor] 20 mg PO HS 06/11/18 [History] Magnesium Oxide [Magnesium] 400 mg PO DAILY 06/11/18 [History] Metformin HCl 1,000 mg PO BID 06/11/18 [History] Turmeric Root Extract [Turmeric Curcumin] 500 mg PO DAILY 06/11/18 [History] Allergy/AdvReac Type Severity Reaction Status Date / Time cephalexin [From Keflex] Allergy Mild Hives Verified 06/11/18 13:11 All Systems Review: The remainder of the systems were reviewed and are negative Review of Systems: Constitutional: Denies fever, chills HEENT: Denies headache, trauma, blurry vision, eye discharge, ear pain, ear discharge neck pain, sore throat, rhinorrhea Heart: Reports chest pain Denies palpitations, LE edema Lungs: Denies shortness of breath cough Abdomen: Denies abdominal painvomiting diarrhea. Reports nausea MSK: Denies back pain, falls, joint pain Kidney: Denies dysuria, hematuria Skin: Denies rash, ulcers Neuro: Denies numbness and tingling Psych: denies anxiety, depression Physical Examination Vital Signs, Last 4 Hours Temp Pulse Resp BP Pulse Ox 06/12/18 11:48 97.4 F L 69 16 122/74 96 General: Conversant, No Apparent Distress HEENT: Atraumatic, Normocephaly, Mucus Membranes Moist Neck: No JVD, Normal carotid pulses Cardiac: Reg Rate and Rhythm, Normal S1 and S2, No Murmur Lungs: Normal Breath Sounds, No Wheeze, Rales, Rhonchi Neuro: Alert and responsive, No focal deficits noted Abdomen: Soft, Non-Tender Skin: No rashes noted on visualized skin Musculoskeletal: No Chest Wall Tenderness Extremities: No Clubbing, No Cyanosis, No Edema, Normal Pulses Results 06/12/18 04:54 06/11/18 11:02 Lab Results 06/11/18 06/11/18 06/12/18 16:38 22:54 04:54 WBC 7.5 Hgb 13.0 Hct 39.5 Plt Count 187 Magnesium Troponin I < 0.03 < 0.03 B-Natriuretic Peptide 06/12/18 06/12/18 04:54 04:54 WBC Hgb Hct Plt Count Magnesium 1.7 Troponin I B-Natriuretic Peptide 38 Consult Discharge Plan - Plan Referrals: Cindy Beach, [facility] [Primary Care Provider] - 07/07/18 2:00 pm
[2018-06-12] MEDS ORDERED: Aspirin Enteric Coated 81 MG Tablet PO SCH (14:30)
--- NOTE | 2018-06-12 14:44 | Discharge Summary ---
- NOTES TO OUTPATIENT PROVIDER Notes to Outpatient Provider: Follow up with PCP in one week. Follow with cardiology in one to two-weeks Orders not resulted at time of discharge: Pending orders 06/12/18 07:00 NM chidi perf SPECT multi [NM] Routine Date of Encounter: 06/12/18 Time of Encounter: 14:33 - Discharge Diagnosis (1) Chest pain Priority: Primary Status: Acute Qualifiers: Chest pain type: unspecified Qualified Code(s): R07.9 - Chest pain, unspecified (2) HTN (hypertension) Priority: Secondary Status: Chronic Qualifiers: Hypertension type: essential hypertension Qualified Code(s): I10 - Essential (primary) hypertension (3) Hyperlipidemia Priority: Secondary Status: Chronic Qualifiers: Hyperlipidemia type: pure hypercholesterolemia Qualified Code(s): E78.00 - Pure hypercholesterolemia, unspecified; E78.0 - Pure hypercholesterolemia (4) Diabetes type 2, controlled Priority: Secondary Status: Acute Qualifiers: Qualified Code(s): E11.9 - Type 2 diabetes mellitus without complications; Z79.4 - long term care pharmacist (current) use of insulin Hospital course: Mr. Anne is a 63 year old male hx of insulin dependent DM2, HTN, HLD and significant family history of CAD pt presented to ER chest pain started yesterday morning while he was at work. His chest pain is located left chest wall and sub sternal region. His chest pain was non radiating more like sharp pain. He felt nauseated and groggy. He was admitted in the hospital and placed him on quality assurance monitor body. His serial troponins came back as negative. His EKG showed normal sinus rhythm and no acute ischemic changes noticed. His Echo LVEF 60% with normal LV changer size and wall thickness and function, mild LV diastolic dysfunction. Since patient is high risk for ACS he did go for nuclear stress test. His stress test came back as a small sized mild to moderate intensity partially fixed perfusion defect which is more prominent on stress than rested imaging. Results are compatible with an artifact. Patient was evaluated by ordnance officer who offered the patient left heart catheterization vs medical management since his stress test findings are low risk. Patient decided to try medical management first. So started him on low dose BB and ASA 81mg. - Time Spent with Patient Total time spent providing and/or coordinating discharge services: - Discharge Medications Prescriptions: Aspirin Enteric Coated [Aspirin EC] 81 mg PO DAILY #30 tablet. Metoprolol [Lopressor] 12.5 mg PO BID #15 tablet Home Medications: Insulin DETEMIR [Levemir Flextouch] 50 unit SQ QPM 06/11/18 [History] Latanoprost [Xalatan] 1 drop BOTH EYES HS 06/11/18 [History] Liraglutide [Victoza 2-Frank] 1.8 mg SQ DAILY 06/11/18 [History] Lisinopril [Zestril] 10 mg PO DAILY 06/11/18 [History] Lovastatin [Mevacor] 20 mg PO HS 06/11/18 [History] Magnesium Oxide [Magnesium] 400 mg PO DAILY 06/11/18 [History] Metformin HCl 1,000 mg PO BID 06/11/18 [History] Turmeric Root Extract [Turmeric Curcumin] 500 mg PO DAILY 06/11/18 [History] Aspirin Enteric Coated [Aspirin EC] 81 mg PO DAILY #30 tablet. 06/12/18 [Rx] Celecoxib [Celebrex] 200 mg PO DAILY PRN #0 06/12/18 [Rx] Metoprolol [Lopressor] 12.5 mg PO BID #15 tablet 06/12/18 [Rx] Allergies/Adverse Reactions: Allergy/AdvReac Type Severity Reaction Status Date / Time cephalexin [From Keflex] Allergy Mild Hives Verified 06/11/18 13:11 Date of admission: 06/11/18 10:05 Primary care physician: Cindy Beach CNP Consults: 06/12/18 13:01 Consult to Cardiology [CONS] Routine Comment: Consulting Provider: Cardiology Kate Reason for Consult: abnormal stress test Time Notified: 13:01 Call Completed: Yes - Constitutional Vitals: Temp Pulse Resp BP Pulse Ox 97.4 F L 69 16 122/74 96 06/12/18 11:48 06/12/18 11:48 06/12/18 11:48 06/12/18 11:48 06/12/18 11:48 Exam: Gen: Alert, awake, Oriented to time,place and person Chest: Diminished breath sounds B/L, No wheezing, No crackles, No rales Heart: S1S2+ RRR No murmurs Abd: Soft, NT, BS +, No organomegaly Ext: No edema, pulses are palpable, No calf tenderness Neuro : Benign findings Skin: No rash. - Patient Status Disposition: Home, Self-Care Condition: Good Overall status at discharge: patient is back to baseline - Discharge Instructions Follow Up With: Cindy Beach CNP [Primary Care Provider] - 07/07/18 2:00 pm Bismark Moraes MD [Partnered Physician] - - Diet and Activity Activity: increase activity as tolerated Diet: low salt diet
== END 2018-06-12 15:00 | disposition home or self-care (01) ==
LOC: 3BNU 06:37 → EMEROOARM 06:37 → SUATTDRO 10:05 → 3BNU 11:08
PROVIDERS: ADMIT Internal Medicine Cardiovascular Disease; ATTEND Family Medicine